=== PATIENT | male | born 1945 | race African-American/Black ===

== ENCOUNTER 2017-02-27 15:45 | Emergency (ER) | payer OTHER ==
[~2017-02-27] VITALS: Ht 193 cm; Wt 106.5 kg
[2017-02-27 15:47] VITALS: BP 160/91; PULSE 85; RESP 18; TEMP 98.1; O2SAT 97
[2017-02-27] MEDS ORDERED: TETANUS/DIPHTHERIA TOXOID ADULT 0.5 ML VIAL IM ONE (16:00)
[2017-02-27] MEDS ORDERED: LIDOCAINE 1%/EPINEPHrine 1:100,000 SOLN 20 ML VIAL INFIL ONE (16:00)
[2017-02-27] MEDS ORDERED: ATEN50TA PO (16:01)
[2017-02-27] MEDS ORDERED: ACET120S3 (16:01)
[2017-02-27] MEDS ORDERED: CLON0.1T PO (16:01)
[2017-02-27] MEDS ORDERED: OLME1TAB9 PO (16:01)
[2017-02-27] MEDS ORDERED: AMLO5TAB2 PO (16:01)
[2017-02-27] MEDS ORDERED: FERR324T4 PO (16:01)
[2017-02-27] MEDS ORDERED: SITA25 PO (16:01)
[2017-02-27] MEDS ORDERED: ALLO300T2 PO (16:01)
[2017-02-27] MEDS ORDERED: PANT40TA3 PO (16:01)
[2017-02-27] MEDS ORDERED: COLC1CAP3 PO (16:01)
--- NOTE | 2017-02-27 16:02 | PD ---
HPI Chief Complaint: Laceration/Skin Injury Time Seen by Provider: 16:02 Travel History International Travel<30 days: No Contact w/Intl Traveler<30days: No Traveled to known affect area: No History of Present Illness HPI 72-year-old male with a history of hypertension, hyperlipidemia and diabetes presents to the emergency department for evaluation of laceration to left anterior knee secondary to trip and fall. The patient states that he was walking to take the trash out at a friend's house when he tripped over the [place] pathway and fell onto his left knee. Denies head trauma or loss of consciousness. Complains of pain at the side of the laceration in and his left knee. Denies any numbness or tingling, weakness. Denies any anticoagulation. No other complaints. Unsure of last tetanus vaccination. [facility] Past Medical History Narrative Medical Hypertension, hyperlipidemia, diabetes Social History Alcohol Use: No Tobacco Use: No Substance Use: No Allergies-Medications (Allergen,Severity, Reaction): Coded Allergies: No Known Allergies (Unverified , 02/27/17) Reported Meds & Prescriptions Reported Meds & Active Scripts Active Keflex (Cephalexin) 500 Mg Cap 500 Mg PO Q12H 7 Days Reported Allopurinol 300 Mg Tab 300 Mg PO DAILY Olmesartan-Hydrochlorothiazide 40-25 Mg Tab 1 Tab PO DAILY Acetamin-Codein 300-30 mg/12.5 (Acetaminophen with Codeine) 12.5 Ml Solution Colchicine 0.6 Mg Cap 0.6 Mg PO DAILY Pantoprazole (Pantoprazole Sodium) 40 Mg Tab 40 Mg PO DAILY Atenolol 50 Mg Tab 50 Mg PO DAILY Amlodipine (Amlodipine Besylate) 5 Mg Tab 5 Mg PO DAILY Ferrous Sulfate DR (Ferrous Sulfate) 324 Mg Tabdr 324 Mg PO DAILY Januvia (Sitagliptin Phosphate) 25 Mg Tab 25 Mg PO DAILY Clonidine (Clonidine HCl) 0.1 Mg Tab 0.1 Mg PO BID Review of Systems Except as stated in HPI: all other systems reviewed are Neg Physical Exam Narrative GENERAL: Well-nourished and well-developed male patient in no acute distress. SKIN: Warm and dry. 12 cm semicircular laceration to anterior left knee. HEAD: Normocephalic and atraumatic. EYES: No injection, drainage, or hyphema noted. PERRLA. EOMI. ENT: No nasal drainage noted. Oropharynx is clear. NECK: Supple and the trachea is midline. CARDIOVASCULAR: Regular rate and rhythm. RESPIRATORY: Breath sounds are equal bilaterally with no accessory muscle use, wheezing, rhonchi, or crackles. MUSCULOSKELETAL: No obvious deformities, swelling, cyanosis, or ecchymosis is present throughout the upper and lower extremities. Patient has full range of motion without any signs of neurovascular compromise. DP pulses are 2+ bilaterally. NEUROLOGICAL: Awake, alert, and oriented. Normal speech and gait. Cranial nerves are grossly intact. Data Data Last Documented VS Vital Signs Date Time Temp Pulse Resp B/P Pulse Ox O2 Delivery O2 Flow Rate FiO2 02/27/17 15:47 98.1 85 18 160/91 97 Room Air Orders Tetanus/Diphtheria Tox Adult (Tetanus/Di (02/27/17 16:00) Lidocai-Epi 1%-1:100,000 Inj (Xylocaine- (02/27/17 16:00) Knee, Complete (4vws) (02/27/17 15:58) Splint Or Brace Apply/Monitor (02/27/17 18:02) Crutches (02/27/17 18:02) MDM Medical Decision Making Medical Screen Exam Complete: Yes Emergency Medical Condition: Yes Differential Diagnosis Laceration versus superficial versus deep versus avulsion versus fracture Narrative Course 72-year-old male presents to the emergency department for evaluation of left knee laceration. Patient is afebrile, vital signs are stable. X-ray imaging of the left knee has been ordered and is pending. X-ray of the left knee is negative for any acute abnormalities. No gas seen on x-ray. The laceration is superficial and does not extend into the joint space. Copious irrigation and laceration repairs performed. Discussed wound care techniques with the patient and family. He is placed in an Leonard wrap and given crutches for ambulation to avoid bending the knee due to tension on the laceration. Patient is placed on prophylactic antibiotics. Patient family verbalize understanding and agreement with treatment plan. I discussed the case with my attending physician Dr. Patel who is aware of the patients history, physical examination findings, and treatment plan. Procedures Procedure Narrative LACERATION LOCATION: Left anterior knee LENGTH: 12 cm semicircular shape NUMBER OF STITCHES/SEBASTIAN: 24 sutures REPAIR: The area of the laceration was prepped with Betadine and sterilely draped. The laceration was infiltrated with 1% lidocaine with epinephrine. The wound was copiously irrigated and explored without evidence of foreign body , tendon injury or neurovascular injury. The wound was probed and appears to be superficial with no extension into the joint. The wound was closed using 4.0 and 3.0 Ethilon. This was a single layer repair. Antibiotic ointment and a sterile dressing was applied. The patient was advised to keep the dressing clean and dry. Patient tolerated the procedure well. Diagnosis Primary Impression: Laceration of knee Qualified Code: S81.012A - Laceration of knee, left, initial encounter Referrals: Primary Care Physician Patient Instructions: General Instructions, Laceration (ED) Additional Instructions: Keep wound clean and dry. Wash wound gently with soap and water in the shower. Apply topical antibiotic ointment twice daily. Have sutures removed in 14 days. Try not to bend knee until wound has healed/ sutures have been removed. Take medication as prescribed with food and a full glass of water. Follow-up with your Primary Care Physician. Return to the ED for any acute worsening of symptoms. Med/Other Pt SpecificInfo: Prescription(s) given Scripts Cephalexin (Keflex)500 Mg Cph057 Mg PO Q12H 7 Days Ref 0 Prov:Sabiha Ptael MD 02/27/17 Disposition: 01 DISCHARGE HOME Condition: Stable Becky Montero Feb 27, 2017 16:02
--- NOTE | 2017-02-27 16:38 | RADRPT ---
EXAM DATE/TIME: 02/27/2017 16:14 [facility] COMPARISON: No previous studies available for comparison. INDICATIONS : Laceration to left knee. MEDICAL HISTORY : None. SURGICAL HISTORY : None. ENCOUNTER: Initial ACUITY: 1 day PAIN SCORE: 7/10 LOCATION: Left Knee FINDINGS: There is a soft tissue laceration anterior left knee. No acute fracture identified. Hypertrophic sutton ges along the medial femoral condyle probably from prior avulsion injury. CONCLUSION: 1. Soft tissue laceration anterior knee. No acute bony abnormality. No joint effusion. Duc Ragsdale MD on February 27, 2017 at 16:34 Board Certified Radiologist. This report was verified electronically.
[2017-02-27] MEDS ORDERED: CEPH-460 PO (18:03)
== END 2017-02-27 18:17 | disposition home or self-care (01) ==
LOC: NEPD 15:45
DX: S81.012A Laceration without foreign body, left knee, initial encounter (principal); E78.5 Hyperlipidemia, unspecified; I10 Essential (primary) hypertension; E11.9 Type 2 diabetes mellitus without complications; Z23 Encounter for immunization; W18.09XA Striking against other object with subsequent fall, initial encounter; Y93.89 Activity, other specified; Y92.014 Private driveway to single-family (private) house as the place of occurrence of the external cause; Y99.9 Unspecified external cause status
CPT/HCPCS: 12004; 73564; 90471; 90714; 99283; E0113